=== PATIENT | female | born 2000 | race Caucasian/White ===

== ENCOUNTER 2019-02-02 10:06 | Emergency (ER) | payer OTHER ==
--- OUTSIDE RECORDS SUMMARY | 2019-02-02 10:13 | XMS REPORT | Continuity of Care Document ---
:2000 External Reference #:[id number] Author Name Clint Manzano M.D. Address [address] [place] [id number] Care Team Providers Name Role Phone Clint Manzano M.D. 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 Resolved Problems Ingrowing nail Onset: 12/24/2010 Resolved: 01/26/2018 Dysmenorrhea Onset: 10/23/2013 Resolved: 01/26/2018 Family History Date Family Member(s) Observation Comments Mother Scoliosis Onset: (age 40 Years) Mother Depression Mother Asthma Mother Seasonal Allergies Grandfather Arthritis Grandfather Hypertension Grandfather Hypercholesterolemia Onset: (age 80 Years) Grandmother Breast Cancer Social History Type Date Description Comments Sex Unknown ETOH Use Occasionally consumes alcohol Recreational Drug Use Denies Drug Use Tobacco Use Start: Unknown Patient has never smoked Smoking Status Reviewed: 01/29/19 Patient has never smoked Currently Active Patient is currently HIV and STD sexually active screening within the past 4-5 months. Additional Info Sexual preference is women Allergies, Adverse Reactions, Alerts Description No Known Drug Allergies Medications Active Medications SIG Qnty Indications Ordering Provider Date No Active Medications Unknown 01/29/2019 History Medications Estarylla Take 1 Tablet 28tabs N94.6 Clint Manzano 04/08/2014 - 0.25-35mg-mcg By Mouth Once M.D. 01/28/2019 Tablets Daily Medications Administered in Office Medication SIG Qnty Indications Ordering Provider Date Immunization Administration Nursing 01/26/2017 Single Or Combination Injection Immunization Administration Clint Manzano M.D. 12/26/2016 thru 18 yrs w/counseling Injection Immunization Administration Nursing 04/13/2016 Single Or Combination Injection Immunization Administration Jennifer Allen NP 02/03/2016 Single Or Combination Injection Immunization Administration Nursing 05/02/2015 Single Or Combination Injection Immunization Administration Nursing 05/31/2014 Single Or Combination Injection Immunizations CPT Code Status Date Vaccine Lot # [id number] Given 01/29/2019 Td Preservative Free For Use In Individuals 7 Yrs [id number] Or Older 38134 Given 01/26/2017 Meningococcal B Vaccine [id number] 75269 Given 12/26/2016 Meningococcal B Vaccine [id number] 51891 Given 04/13/2016 Flu Quadrivalent [id number] 57787 Given 02/03/2016 Meningococcal Conjugate Vaccine (Menveo) [id number] 38709 Given 05/02/2015 Flu Quadrivalent [id number] 92468 Given 05/31/2014 Flu Quadrivalent [id number] 91221 Given 04/22/2013 Influenza Virus Vaccine, Split Virus, 6-35 Months Age Intramuscul 77919 Given 04/25/2012 Influenza Virus Vaccine, Split Virus, 6-35 Months Age Intramuscul 71308 Given 07/12/2011 Gardasil 08628 Given 04/25/2011 Influenza Virus Vaccine, Split Virus, 6-35 Months Age Intramuscul 87318 Given 03/10/2011 Gardasil 43549 Given 12/24/2010 Gardasil 46800 Given 05/06/2010 Influenza Virus Vaccine, Split Virus, 6-35 Months Age Intramuscul 60578 Given 12/23/2009 Tdap 35129 Given 05/20/2009 Influenza Virus Vaccine, Pandemic Formulation, Live, Intranasal 89318 Given 05/20/2009 Influenza Virus Vaccine, Split Virus, 6-35 Months Age Intramuscul 15957 Given 04/29/2008 Influenza Virus Vaccine, Split Virus, 6-35 Months Age Intramuscul 81381 Given 11/26/2007 Menactra 43010 Given 05/29/2007 Varicella (Chicken Pox) Vaccine 21043 Given 05/29/2007 Influenza Virus Vaccine, Split Virus, 6-35 Months Age Intramuscul 95777 Given 05/29/2007 Hepatitis A Pediatric 79648 Given 11/22/2006 Hepatitis A Pediatric 25851 Given 04/25/2006 Influenza Virus Vaccine, Split Virus, 6-35 Months Age Intramuscul 01794 Given 08/10/2004 Influenza Virus Vaccine Intranasal 54476 Given 06/14/2004 Influenza Virus Vaccine Intranasal 19411 Given 10/31/2003 Polio Injectable 91076 Given 10/31/2003 MMR Vaccine, Live, For Subcutaneous Use 73156 Given 10/31/2003 DTaP Vaccine Younger Than 7 61645 Given 06/19/2000 Prevnar 13 76006 Given 03/29/2000 Hepatitis B Vaccine Pediatric/Adolescent 71212 Given 03/29/2000 Polio Injectable 56233 Given 03/29/2000 DTaP Vaccine Younger Than 7 51879 Given 02/23/2000 Prevnar 13 65932 Given 02/23/2000 Hib Vaccine 77430 Given 11/16/1999 MMR Vaccine, Live, For Subcutaneous Use 10870 Given 11/16/1999 Varicella (Chicken Pox) Vaccine 38800 Given 05/12/1999 DTaP Vaccine Younger Than 7 09241 Given 05/12/1999 Hib Vaccine 27648 Given 04/06/1999 Polio Injectable 54175 Given 03/03/1999 DTaP Vaccine Younger Than 7 64796 Given 03/03/1999 Hib Vaccine 03998 Given 02/03/1999 Hepatitis B Vaccine Pediatric/Adolescent 36273 Given 02/03/1999 Polio Injectable 78618 Given 01/06/1999 DTaP Vaccine Younger Than 7 09170 Given 01/06/1999 Hib Vaccine 29683 Given 1998 Hepatitis B Vaccine Pediatric/Adolescent Vital Signs Date Vital Result Comment 01/29/2019 3:19pm Body Temperature 98.7 F Heart Rate 101 /min Respiratory Rate 12 /min BP Systolic 132 mmHg BP Diastolic 79 mmHg Weight 127.25 lb Weight 57.721 kg Height 64.6 inches 5'4.60" BMI (Body Mass Index) 21.4 kg/m2 01/26/2018 3:57pm Body Temperature 98.0 F Heart Rate 77 /min Respiratory Rate 14 /min BP Systolic 105 mmHg BP Diastolic 65 mmHg Weight 128.75 lb Weight 58.401 kg Height 64.6 inches 5'4.60" BMI (Body Mass Index) 21.7 kg/m2 Body Mass Index Percentile 51 % Height Percentile 55 % Weight Percentile 54th 04/24/2017 11:50am Body Temperature 98.3 F Heart Rate 98 /min Respiratory Rate 14 /min BP Systolic 118 mmHg BP Diastolic 70 mmHg Blood Pressure Percentile 0 % Weight 130.75 lb Weight 59.308 kg Weight Percentile 61st 12/26/2016 10:21am Body Temperature 98.7 F Heart Rate 72 /min Respiratory Rate 18 /min BP Systolic 122 mmHg BP Diastolic 60 mmHg Blood Pressure Percentile 83 % Weight 129.38 lb Weight 58.684 kg Height 64.7 inches 5'4.70" BMI (Body Mass Index) 21.7 kg/m2 Body Mass Index Percentile 55 % Height Percentile 57 % Weight Percentile 60th 02/03/2016 3:50pm Body Temperature 98.2 F Heart Rate 80 /min Respiratory Rate 16 /min BP Systolic 112 mmHg BP Diastolic 72 mmHg Blood Pressure Percentile 49 % Weight 130.38 lb Weight 59.138 kg Height 64.5 inches 5'4.50" BMI (Body Mass Index) 22.0 kg/m2 Body Mass Index Percentile 62 % Height Percentile 55 % Weight Percentile 65th 06/15/2015 8:45am Body Temperature 98.7 F Heart Rate 82 /min Respiratory Rate 16 /min BP Systolic 100 mmHg BP Diastolic 62 mmHg Blood Pressure Percentile 0 % Weight 131.75 lb Weight 59.762 kg Weight Percentile 69th 12/05/2014 3:02pm Body Temperature 98.7 F Heart Rate 81 /min Respiratory Rate 16 /min BP Systolic 118 mmHg BP Diastolic 77 mmHg Blood Pressure Percentile 70 % Weight 134.25 lb Weight 60.896 kg Height 65 inches 5'5" BMI (Body Mass Index) 22.3 kg/m2 Body Mass Index Percentile 71 % Height Percentile 65 % Weight Percentile 74th 03/12/2014 12:00pm Heart Rate 90 /min Respiratory Rate 14 /min BP Systolic 113 mmHg BP Diastolic 68 mmHg Weight 130.69 lb Weight 59.285 kg Height 65 inches 10/23/2013 12:00pm Heart Rate 92 /min Respiratory Rate 16 /min BP Systolic 126 mmHg BP Diastolic 77 mmHg Weight 129.12 lb Weight 58.559 kg 04/22/2013 12:00pm Heart Rate 84 /min Respiratory Rate 18 /min BP Systolic 126 mmHg BP Diastolic 70 mmHg Weight 128.00 lb Weight 58.060 kg 01/01/2013 12:00pm Heart Rate 86 /min Respiratory Rate 12 /min BP Systolic 108 mmHg BP Diastolic 65 mmHg Weight 120.12 lb Weight 54.476 kg Height 64.5 inches 11/22/2012 12:00pm Heart Rate 73 /min Respiratory Rate 20 /min BP Systolic 120 mmHg BP Diastolic 70 mmHg Weight 121.81 lb Weight 55.248 kg 11/01/2012 12:00pm Heart Rate 80 /min Respiratory Rate 16 /min BP Systolic 107 mmHg BP Diastolic 70 mmHg Weight 122.62 lb Weight 55.610 kg 10/11/2012 12:00pm Heart Rate 85 /min Respiratory Rate 16 /min BP Systolic 109 mmHg BP Diastolic 68 mmHg Weight 122.19 lb Weight 55.429 kg 12/27/2011 12:00pm Heart Rate 88 /min Respiratory Rate 20 /min BP Systolic 110 mmHg BP Diastolic 68 mmHg Weight 116.25 lb Weight 52.730 kg Height 63.5 inches 08/29/2011 11:00am Heart Rate 88 /min Respiratory Rate 14 /min BP Systolic 112 mmHg BP Diastolic 62 mmHg Weight 115.00 lb Weight 52.163 kg 03/24/2011 12:00pm Heart Rate 104 /min Respiratory Rate 22 /min BP Systolic 110 mmHg BP Diastolic 68 mmHg Weight 101.00 lb Weight 45.813 kg 03/21/2011 12:00pm Heart Rate 81 /min Respiratory Rate 20 /min BP Systolic 103 mmHg BP Diastolic 70 mmHg Weight 101.00 lb Weight 45.813 kg 12/24/2010 12:00pm Heart Rate 87 /min Respiratory Rate 12 /min BP Systolic 109 mmHg BP Diastolic 62 mmHg Weight 93.62 lb Weight 42.456 kg Height 61 inches 12/23/2009 12:00pm Heart Rate 84 /min Respiratory Rate 16 /min BP Systolic 102 mmHg BP Diastolic 70 mmHg Weight 82.00 lb Weight 37.195 kg Height 58.25 inches 12/03/2008 12:00pm Heart Rate 80 /min Respiratory Rate 20 /min BP Systolic 100 mmHg BP Diastolic 68 mmHg Weight 74.50 lb Weight 33.793 kg Height 55.25 inches 10/07/2008 12:00pm Heart Rate 76 /min Respiratory Rate 24 /min BP Systolic 92 mmHg BP Diastolic 64 mmHg Weight 74.25 lb Weight 33.679 kg 09/24/2008 12:00pm Heart Rate 88 /min Respiratory Rate 18 /min BP Systolic 102 mmHg BP Diastolic 68 mmHg Weight 74.50 lb Weight 33.793 kg 03/27/2008 12:00pm Heart Rate 80 /min Respiratory Rate 16 /min BP Systolic 100 mmHg BP Diastolic 64 mmHg Weight 70.00 lb Weight 31.751 kg 03/07/2008 12:00pm Heart Rate 80 /min Respiratory Rate 16 /min BP Systolic 100 mmHg BP Diastolic 64 mmHg Weight 70.50 lb Weight 31.978 kg 02/18/2008 12:00pm Heart Rate 80 /min Respiratory Rate 24 /min BP Systolic 90 mmHg BP Diastolic 60 mmHg Weight 70.50 lb Weight 31.978 kg 01/22/2008 12:00pm Heart Rate 80 /min Respiratory Rate 16 /min BP Systolic 98 mmHg BP Diastolic 62 mmHg Weight 69.00 lb Weight 31.298 kg 11/26/2007 12:00pm Heart Rate 80 /min Respiratory Rate 16 /min BP Systolic 80 mmHg BP Diastolic 60 mmHg Weight 68.25 lb Weight 30.958 kg Height 53.25 inches 08/31/2007 11:00am Heart Rate 84 /min Respiratory Rate 16 /min BP Systolic 98 mmHg BP Diastolic 68 mmHg Weight 64.75 lb Weight 29.370 kg 08/24/2007 11:00am Heart Rate 80 /min Respiratory Rate 12 /min BP Systolic 94 mmHg BP Diastolic 68 mmHg Weight 64.00 lb Weight 29.030 kg 08/13/2007 11:00am Heart Rate 100 /min Respiratory Rate 20 /min BP Systolic 102 mmHg BP Diastolic 60 mmHg Weight 63.50 lb Weight 28.803 kg 08/07/2007 11:00am Heart Rate 72 /min Respiratory Rate 12 /min BP Systolic 92 mmHg BP Diastolic 70 mmHg Weight 64.25 lb Weight 29.143 kg 07/14/2007 11:00am Heart Rate 104 /min Respiratory Rate 28 /min BP Systolic 92 mmHg BP Diastolic 60 mmHg Weight 63.00 lb Weight 28.576 kg 03/08/2007 12:00pm Heart Rate 96 /min Respiratory Rate 24 /min BP Systolic 90 mmHg BP Diastolic 52 mmHg Weight 63.50 lb Weight 28.803 kg 01/06/2007 12:00pm Heart Rate 92 /min Respiratory Rate 16 /min BP Systolic 102 mmHg BP Diastolic 64 mmHg Weight 62.00 lb Weight 28.123 kg 11/22/2006 12:00pm Heart Rate 80 /min Respiratory Rate 16 /min BP Systolic 106 mmHg BP Diastolic 60 mmHg Weight 61.50 lb Weight 27.896 kg Height 51 inches 11/06/2006 12:00pm Heart Rate 112 /min Respiratory Rate 20 /min BP Systolic 108 mmHg BP Diastolic 66 mmHg Weight 60.00 lb Weight 27.216 kg 06/20/2006 11:00am Heart Rate 92 /min Respiratory Rate 20 /min BP Systolic 90 mmHg BP Diastolic 60 mmHg Weight 58.00 lb Weight 26.308 kg 04/28/2006 12:00pm Heart Rate 132 /min Respiratory Rate 24 /min BP Systolic 100 mmHg BP Diastolic 64 mmHg Weight 56.50 lb Weight 25.628 kg 03/21/2006 12:00pm Heart Rate 88 /min Respiratory Rate 16 /min BP Systolic 90 mmHg BP Diastolic 58 mmHg Weight 56.25 lb Weight 25.515 kg 03/09/2006 12:00pm Heart Rate 72 /min Respiratory Rate 16 /min BP Systolic 96 mmHg BP Diastolic 64 mmHg Weight 57.00 lb Weight 25.855 kg 01/25/2006 12:00pm Heart Rate 76 /min Respiratory Rate 16 /min BP Systolic 92 mmHg BP Diastolic 60 mmHg Weight 55.00 lb Weight 24.948 kg Height 49 inches 12/26/2005 12:00pm Heart Rate 96 /min Respiratory Rate 28 /min BP Systolic 80 mmHg BP Diastolic 52 mmHg Weight 52.50 lb Weight 23.814 kg 12/09/2005 12:00pm Heart Rate 88 /min Respiratory Rate 24 /min BP Systolic 98 mmHg BP Diastolic 62 mmHg Weight 52.50 lb Weight 23.814 kg 12/08/2005 12:00pm Heart Rate 92 /min Respiratory Rate 20 /min BP Systolic 86 mmHg BP Diastolic 60 mmHg Weight 52.50 lb Weight 23.814 kg 11/21/2005 12:00pm Heart Rate 108 /min Respiratory Rate 20 /min BP Systolic 86 mmHg BP Diastolic 60 mmHg Weight 54.00 lb Weight 24.494 kg Height 48.5 inches 10/24/2005 12:00pm Heart Rate 111 /min Respiratory Rate 18 /min BP Systolic 84 mmHg BP Diastolic 52 mmHg Weight 53.50 lb Weight 24.267 kg Results Test Date Facility Test Result H/L Range Note .CBC W/Auto 01/29/2019 [facility] White Blood 7.[address] [place] [address] Auto CNT [phone] Absolute Lymphocytes 2.3 Absolute Monocytes 0.5 Absolute Neutrophils Auto CNT 4.9 Lymph% 29.8 Mccreary% Auto Count BLD 6.3 Neutrophil % 63.9 RBC Red Blood Count 4.42 Hemoglobin Blood 13.0 Hematocrit 41.1 MCV (Corpuscular Volume) 92.9 MCH (Corpuscular Hemoglobin) 29.4 MCHC (Corpuscular Hemog Conc) 31.6 RDW 12.0 Platelet Count Blood Auto CNT 229 MPV 8.7 .CBC W/Auto 01/26/2018 [facility] White Blood 7.7 Differential [address] [place] [place] [address] CNT [phone] Absolute Lymphocytes 3.3 Absolute Monocytes 0.7 Absolute Neutrophils Auto CNT 3.8 Lymph% 42.3 Mccreary% Auto Count BLD 8.7 Neutrophil % 49.0 RBC Red Blood Count 4.21 Hemoglobin Blood 11.4 Hematocrit 37.4 MCV (Corpuscular Volume) 88.9 MCH (Corpuscular Hemoglobin) 27.1 MCHC (Corpuscular Hemog Conc) 30.5 RDW 13.3 Platelet Count Blood Auto CNT 231 MPV 8.9 .CBC W/Auto 12/26/2016 [facility] White Blood 4.2 Differential [address] [place] [place] [address] CNT [phone] Absolute Lymphocytes 1.8 Absolute Monocytes 0.3 Absolute Neutrophils Auto CNT 2.1 Lymph% 42.1 Mccreary% Auto Count BLD 7.6 Neutrophil % 50.3 RBC Red Blood Count 4.55 Hemoglobin Blood 11.4 Hematocrit 36.3 MCV (Corpuscular Volume) 79.8 MCH (Corpuscular Hemoglobin) 25.1 MCHC (Corpuscular Hemog Conc) 31.4 RDW 13.7 Platelet Count Blood Auto CNT 231 MPV 8.7 .Cholesterol 12/26/2016 [facility] Cholesterol Total 185 Screening [address] Mass/Vol [place], [place] [id number] [phone] HDL Cholesterol Mass/Vol 51 Triglycerides Ser/Plas Mass/VL 113 LDL Cholesterol Mass/Vol 111 Non-HDL Cholesterol QN Ser/PLS 134 LDL/HDL Ratio 3.6 .CBC W/Auto 02/03/2016 [facility] White Blood 7.5 Differential [address] [place] [address] CNT [phone] Absolute Lymphocytes 2.9 Absolute Monocytes 0.6 Absolute Neutrophils Auto CNT 4.1 Lymph% 38.4 Mccreary% Auto Count BLD 7.4 Neutrophil % 54.2 RBC Red Blood Count 3.96 Hemoglobin Blood 11.7 Hematocrit 34.3 MCV (Corpuscular Volume) 86.7 MCH (Corpuscular Hemoglobin) 29.5 MCHC (Corpuscular Hemog Conc) 34.1 RDW 12.6 Platelet Count Blood Auto CNT 225 MPV 8.5 Laboratory test 06/15/2015 [facility] .Culture Throat neg finding [address] [place] [address] [phone] .Quick Strep Screen negative .CBC W/Auto 12/05/2014 [facility] White Blood 5.[address] [place] [address] CNT [phone] Absolute Lymphocytes 2.3 Absolute Monocytes 0.5 Absolute Neutrophils Auto CNT 2.5 Lymph% 43.8 Mccreary% Auto Count BLD 9.4 Neutrophil % 46.8 RBC Red Blood Count 3.98 Hemoglobin Blood 11.1 Hematocrit 33.1 MCV (Corpuscular Volume) 83.1 MCH (Corpuscular Hemoglobin) 27.9 MCHC (Corpuscular Hemog Conc) 33.5 RDW 14.3 Platelet Count Blood Auto CNT 262 MPV 9.1 Rapid Influenza A 08/09/2014 [facility] Rapid Influenza A (SEE NOTE) 1, [address] [place] [address] Laboratory test 08/09/2014 [facility] RSV Antigen Screen (SEE NOTE) [address] [place] [address] Rapid Strep A 08/09/2014 [facility] Rapid Strep A (SEE NOTE) [address] [place] [address] Laboratory test 08/09/2014 [facility] Throat Beta Strep (SEE NOTE) [address] [place] [address] Laboratory test 03/12/2014 N2N/[facility]D Import Granulocytes # 4.8 1.5-8. finding 0 Granulocytes (%) 56.3 38.0-83.0 Hematocrit 36.3 36.0-46.0 Hemoglobin 11.9 Low 12.0-16.0 Lymphocytes # 3 x10.3/ul 1.2-5.2 Lymphocytes % 35.4 20.0-45.0 Mean Corpuscular Hemoglobin 27.1 26.0-34.0 Mean Corpuscular Hemoglobin Concent 32.8 31.0-37.0 Mean Platelet Volume 8.9 7.4-10.4 Monocytes # 0.7 0.0-0.8 Monocytes % 8.3 1.0-9.0 Platelet Count 293 x10.3/ul 150-350 Poc Mean Corpuscular Volume 82.7 78.0-102.0 Red Blood Count 4.39 3.90-5.10 Red Cell Distribution Width 14.9 10.5-15.0 White Blood Count 8.5 4.5-13.5 Laboratory test 10/23/2013 [facility] Import Urine HCG, negative finding Qualitative Laboratory test 01/01/2013 [facility] Import Granulocytes # 2.7 1.5-8.0 finding Granulocytes (%) 54.1 38.0-83.0 Hematocrit 37.4 36.0-46.0 Hemoglobin 12.5 12.0-16.0 Lymphocytes # 1.9 1.2-5.2 Lymphocytes % 37.2 20.0-45.0 Mean Corpuscular Hemoglobin 27.1 26.0-34.0 Mean Corpuscular Hemoglobin Concent 33.4 31.0-37.0 Mean Platelet Volume 8.9 7.4-10.4 Monocytes # 0.4 0.0-0.8 Monocytes % 8.7 1.0-9.0 Platelet Count 237. 150-350 Poc Mean Corpuscular Volume 81.2 78.0-102.0 Red Blood Count 4.61 3.90-5.10 Red Cell Distribution Width 14.9 10.5-15.0 White Blood Count 5.0 4.5-13.5 Laboratory test finding 11/23/2012 [facility] Import Urine Ashley Count None Laboratory test finding 11/22/2012 [facility] Import Urine Bilirubin Negative Urine Blood negative Urine Clarity Clear Urine Collection Type Clean catch Urine Color Yellow Urine Glucose Negative Urine Ketones Negative Urine Leukocyte Esterase Negative Urine Nitrite Negative Urine Protein Trace Urine Specific Amboy 1.030 Urine Urobilinogen Normal Urine pH 5 Laboratory test 11/13/2012 N[facility] Import Ur Leukocyte 1+ High Negative finding Esterase Ur Specific [place] 1.018 1.010-1.030 Urine Appearance Clear Urine Bacteria 2+ None Seen Urine Bilirubin Negative Negative Urine Blood 3+ High Negative Urine Color Yellow Urine Glucose (Ua) Negative Negative Urine Ketones Negative Negative Urine Mucus Present Absent Urine Nitrate Positive High Negative Urine Protein 3+ High Negative Urine RBC 3+ (>10 /hpf) None Seen Urine Urobilinogen Negative Negative Urine WBC 1+ (<10 /hpf) None Seen Urine pH 6.0 5-9 Laboratory test 10/11/2012 [facility] Import Absolute Basos 0 10^3/ul 0- 0.2 finding (auto) Absolute Eos (auto) 0.2 0-0.6 Absolute Gran (auto) 3.7 1.5-7.7 Absolute Lymphs (auto) 2.6 1.0-4.8 Absolute Monos (auto) 0.5 0-0.8 Absolute Nucleated RBC 0 10^3/ul Band Neutrophils % 1 % 0-8 Eosinophils % 3 % 0-6 Factor VIII Activity 121 % 55 - 200 Hct 34 % Low 35-45 Hgb 11.3 Low 11.5-15.5 Lymphocytes % 32 % 25-47 MCH 28 pg 27-31 MCHC 34 g/dL 31-36 MCV 83 fL 80-97 MPV 9 um3 7.4-10.4 Monocytes % 2 % 0-13 Neutrophils % 59 % 38-83 Plt Count 273 10^3/ul 150-450 RBC 4.04 4.0-5.2 RBC Morphology Normal Normal RDW 13 % 10.5-15 Reactive Lymphs % 3 % 0-6 WBC 7.0 4.8-10.8 vWF Panel Interp See Comment von Willebrand Activity 134 % 55 - 200 von Willebrand Antigen 107 % Laboratory test finding 12/27/2011 [facility] Import Granulocytes # 3.0 1.5 -8.0 Granulocytes (%) 45.4 38.0-83.0 Hematocrit 36.4 36.0-46.0 Hemoglobin 12.1 12.0-16.0 Lymphocytes # 3.1 1.2-5.2 Lymphocytes % 45.9 High 20.0-45.0 Mean Corpuscular Hemoglobin 29.7 26.0-34.0 Mean Corpuscular Hemoglobin Concent 33.2 31.0-37.0 Mean Platelet Volume 9.0 7.4-10.4 Monocytes # 0.6 0.0-0.8 Monocytes % 8.7 1.0-9.0 Platelet Count 246 x10.3/ul 150-350 Poc Mean Corpuscular Volume 89.3 78.0-102.0 Red Blood Count 4.08 3.90-5.10 Red Cell Distribution Width 12.1 10.5-15.0 White Blood Count 6.7 4.5-13.5 Laboratory test 03/08/2008 N2N/CCD Import Throat Culture Neg finding Laboratory test 09/02/2007 N2N/CCD Import Genital Culture (Lab) positive finding Laboratory test 08/31/2007 N2N/CCD Import Urine Bilirubin Negative finding Urine Blood negative Urine Clarity Clear Urine Collection Type Clean Urine Color Yellow Urine Glucose N Urine Ketones Negative Urine Leukocyte Esterase Negative Urine Nitrite Negative Urine Protein Negative Urine Specific Amboy 1.015 Urine Urobilinogen Normal 0.2-1.0 Urine pH 6.0 Laboratory test finding 08/25/2007 N2N/CCD Import Urine Ashley Count None Laboratory test finding 08/24/2007 N2N/CCD Import Urine Bacteria 2+ Urine Bilirubin Negative Urine Blood negative Urine Clarity Clear Urine Collection Type Clean Urine Color Yellow Urine Crystals N Urine Epithelial Cells N Urine Glucose N Urine Granular Casts N Urine Hyaline Casts N Urine Ketones Negative Urine Leukocyte Esterase Negative Urine Mucus N Urine Nitrite Negative Urine Protein Negative Urine RBC N Urine Specific Amboy 1.020 Urine Urobilinogen Normal 0.2-1.0 Urine WBC N Urine pH 6.0 Laboratory test 08/13/2007 N2N/CCD Import Influenza Virus positive finding Culture (Rapid) 1 Verbal to [id number] by [id number] at 1604 on 08/09/14.~Results read back accurately. 2 RUN DATE: 08/09/14 [facility] LAB LIVE PAGE 1 RUN TIME: [address] [place] [address] Specimen Inquiry Name: THALIA SCHMITT : [address]: Halle Diego MD Acct: [id number] Unit: [id number] AGE: 13 Location: [facility] Re08/09/14 SEX: F Status: REG ER SPEC: [id number] GRACIA: 08/09/14-[address]: Halle Diego MD REQ: [id number] RECD: 08/09/14-153 STATUS: ANTONELLA PRADO DR: Clint Manzano MD _ SOURCE: DANNIE SPDC: ORDERED: Rapid Flu A B COMMENTS: Verbal to [id number] by [id number] at 1604 on 08/09/14. Results read back accurately. Procedure Result Verified Site Rapid Influenza A B Antigen Final 08/09/14- 1604 ML Organism 1 POSITIVE INFLUENZA A Organism 2 Negative Influenza B Antigen testing by enzyme immunoassay. Cell culture testing can be performed to confirm negative test results and to assist in detecting other viruses that can produce similar clinical symptoms. Please notify Microbiology Lab if further testing is desired. END OF REPORT * ML=Testing performed at Main Lab DEPARTMENT OF PATHOLOGY, [facility] [employer] [place], [place] [address] Ryland Ojeda M.D. Director IA # [id number] 3 RUN DATE: 08/09/14 [facility] LAB LIVE PAGE 1 RUN TIME: 1607 [facility] [address] [place], [place] [address] Specimen Inquiry Name: THALIA SCHMITT : [address]: Halle Diego MD Acct: [id number] Unit: [id number] AGE: 13 Location: [facility] Re08/09/14 SEX: F Status: REG ER SPEC: [id number] GRACIA: 08/09/14-[address] [facility] [address]: Halle Diego MD REQ: [id number] RECD: 08/09/14 STATUS: ANTONELLA [facility] DR: Clint Manzano MD _ SOURCE: DANNIE [facility]: ORDERED: RSV Procedure Result Verified Site RSV Antigen Screen Final 08/09/14- 1607 ML Organism 1 Negative RSV Antigen testing by enzyme immunoassay. Cell culture testing can be performed to confirm negative test results and to assist in detecting other viruses that can produce similar clinical symptoms. Please notify Microbiology Lab if further testing is desired. END OF REPORT * ML=Testing performed at Main Lab DEPARTMENT OF PATHOLOGY, [facility] [employer] [place], [place] [address] Ryland Ojeda M.D. Director CLIA # [id number] 4 RUN DATE: 08/09/14 [facility] LAB LIVE PAGE 1 RUN TIME: 4173 [facility] [address] [place], [place] [address] Specimen Inquiry Name: RADHATHALIA : [address]: Halle Diego MD Acct: [id number] Unit: [id number] AGE: 13 Location: [facility] Re08/09/14 SEX: F Status: REG ER SPEC: [id number] GRACIA: 08/09/14 [facility] DR: Halle Diego MD REQ: [id number] RECD: 08/09/14 STATUS: ANTONELLA CHATMAN DR: Clint Manzano MD _ SOURCE: THROAT SPDESC: ORDERED: Rapid Strep A Procedure Result Verified Site Rapid Strep A Final 08/09/14- 1348 ML Organism 1 Negative Strep Group A Antigen testing by enzyme immunoassay. The machine bookkeeper and regulatory agencies both recommend that a throat culture for beta strep be performed if a Rapid Group A Strep assay yields a negative result. Therefore a culture will be automatically performed on all negative samples. END OF REPORT * ML=Testing performed at Main Lab DEPARTMENT OF PATHOLOGY, [facility] [employer] [place], [place] [address] Ryland Ojeda M.D. Director [facility] # [id number] 5 RUN DATE: 08/11/14 [facility] LAB LIVE PAGE 1 RUN TIME: [address] [facility] [address] [place], [place] [address] Specimen Inquiry Name: THALIA SCHMITT : [address]: Halle Diego MD Acct: [id number] Unit: [id number] AGE: 13 Location: [facility] Re08/09/14 SEX: F Status: DEP ER SPEC: [id number] GRACIA: 08/09/[address]: Halle Diego MD REQ: [id number] RECD: 08/09/14 STATUS: ANTONELLA CHATMAN DR: Clint Manzano MD _ SOURCE: THROAT SPDESC: ORDERED: Rapid Strep A, Throat Beta Str QUERIES: Provider Requisition # Procedure Result Verified Site Rapid Strep A Final 08/09/14- 1348 ML Organism 1 Negative Strep Group A Antigen testing by enzyme immunoassay. The machine bookkeeper and regulatory agencies both recommend that a throat culture for beta strep be performed if a Rapid Group A Strep assay yields a negative result. Therefore a culture will be automatically performed on all negative samples. Throat Beta Strep Culture Final 08/11/14- 0823 ML Negative For Group A Beta Streptococcus END OF REPORT * ML=Testing performed at Main Lab DEPARTMENT OF PATHOLOGY, [address] [place] [id number] Ryland Ojeda M.D. Director [facility] # [id number] Procedures Date Code Description Status 01/26/2018 90938 Vision Screening Completed 01/26/2018 91398 Admin Patient Focused Health Risk Assessment Instrument Completed 01/26/2018 59064 Brief Emotional/Behav Assessment W/ Scoring Doc Per Completed Standard Inst 01/26/2018 17437 Hearing Screen, Pure Tone, Air Completed 01/26/2018 23249 Collection Of Capillary Blood Specimen Completed 12/26/2016 32759 Vision Screening Completed 12/26/2016 01959 Admin Patient Focused Health Risk Assessment Instrument Completed 12/26/2016 51228 Brief Emotional/Behav Assessment W/ Scoring Doc Per Completed Standard Inst 12/26/2016 65829 Hearing Screen, Pure Tone, Air Completed 12/26/2016 32189 Collection Of Capillary Blood Specimen Completed 02/03/2016 61491 Vision Screening Completed 02/03/2016 86797 Hearing Screen, Pure Tone, Air Completed 02/03/2016 92437 Collection Of Capillary Blood Specimen Completed 12/05/2014 20569 Vision Screening Completed 12/05/2014 23322 Hearing Screen, Pure Tone, Air Completed 12/05/2014 17263 Collection Of Capillary Blood Specimen Completed Encounters Type Date Location Provider Dx Diagnosis Office Visit 01/29/2019 [facility] Clint Manzano, Z00.00 Encntr for general 3:00p M.DMamadou adult medical exam w/o abnormal findings 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 mononucleosis, unspecified without complication G43.909 Migraine, unsp, not intractable, without status migrainosus Office Visit 12/26/2016 10:00a [facility] Clint Manzano Z00.00 Encntr for M.DMamadou general adult medical exam w/o abnormal findings G43.909 Migraine, unsp, not intractable, without status migrainosus N94.6 Dysmenorrhea, unspecified Z71.89 Other specified counseling Office Visit 02/03/2016 3:45p [place] [facility] Jennifer Allen NP Z00.129 Encntr for routine child health exam w/o abnormal findings N94.6 Dysmenorrhea, unspecified L70.0 Acne vulgaris Office Visit 06/15/2015 8:30a [facility] Maci Terrell J02.9 Acute pharyngitis, RPA-C unspecified Office Visit 12/05/2014 3:00p [facility] Clint V20.2 Routine Infant Or Luma Manzano Child Health Check v65.42 Counseling On Substance Use & Abuse 625.3 Dysmenorrhea 706.1 Acne Other
[2019-02-02 10:20] VITALS: BP 129/73
--- NOTE | 2019-02-02 10:34 | UC ---
Ear Complaint HPI - HPI Summary HPI Summary: 18-year-old female presents with complaints of onset of "muffled" hearing in the left ear for the past 2 days. States around 2 AM this morning she was awoken with a sharp ear pain in the left ear which improved after applying a warm compress and taking a dose of ibuprofen. States the pain was still present this morning although less intense. Denies fever, chills, ear drainage , nasal congestion, runny nose, sore throat, or cough. - History of Current Complaint Chief Complaint: UCEar Stated Complaint: EAR PAIN Time Seen by Provider: 02/02/19 10:28 Hx Obtained From: Patient Hx Last Menstrual Period: 4 weeks ago Pain Intensity: 2 - Allergies/Home Medications Allergies/Adverse Reactions: Allergies Allergy/AdvReac Type Severity Reaction Status Date / Time cold medicine AdvReac tingling Uncoded 02/02/19 10:21 hands Home Medications: Home Medications Ibuprofen TAB* [Advil TAB*] 400 mg PO Q6H PRN 02/02/19 [History Confirmed ] PMH/Surg Hx/FS Hx/Imm Hx Previously Healthy: Yes Neurological History: Migraine - Surgical History Surgical History: None - Family History Known Family History: Positive: Non-Contributory - Social History Occupation: Student Lives: With Family Alcohol Use: Rare Substance Use Type: None Smoking Status (MU): Never Smoked Tobacco - Immunization History Most Recent Influenza Vaccination: 04/2014 Review of Systems All Other Systems Reviewed And Are Negative: Yes Constitutional: Negative: Fever, Chills Eyes: Negative: Drainage, Eye Redness ENT: Positive: Ear Ache. Negative: Sore Throat, Nasal Discharge, Sinus Congestion, Sinus Pain/Tenderness Respiratory: Negative: Cough Cardiovascular: Positive: Negative Gastrointestinal: Positive: Negative Genitourinary: Positive: Negative Musculoskeletal: Positive: Negative Neurological: Positive: Negative Is Patient Immunocompromised?: No Physical Exam - Summary Physical Exam Summary: GENERAL APPEARANCE: Well developed, well nourished, alert and cooperative, and appears to be in no acute distress. EYES: Conjunctiva clear. No drainage. PERRL, EOM intact. Vision is grossly intact. EARS: Bilateral cerumen impaction. TMs not visualized. NOSE: No nasal discharge. THROAT: Pharynx normal. No tonsilar inflammation, swelling, exudate, or lesions. Uvula midline. NECK: Neck supple, non-tender without lymphadenopathy. CARDIAC: Normal S1 and S2. No S3, S4 or murmurs. Rhythm is regular. There is no peripheral edema, cyanosis or pallor. Extremities are warm and well perfused. Capillary refill is less than 2 seconds. Peripheral pulses intact. LUNGS: Clear to auscultation without rales, rhonchi, wheezing or diminished breath sounds. ABDOMEN: Positive bowel sounds. Soft, nondistended, nontender. No guarding or rebound. No masses or hepatosplenomegally. MUSKULOSKELETAL: ROM intact to all extremities. No joint erythema or tenderness. Normal muscular development. Normal gait. SKIN: Skin normal color, texture and turgor with no lesions or eruptions. Triage Information Reviewed: Yes Vital Signs: Initial Vital Signs Temp 99.1 F 02/02/19 10:17 Pulse 79 02/02/19 10:17 Resp 16 02/02/19 10:17 BP 129/73 02/02/19 10:17 Pulse Ox 98 02/02/19 10:17 Vital Signs Reviewed: Yes Re-Evaluation - Re-Evaluation First Eval Re-Evaluation Time: 10:50 Change: Improved Comment: Post-irrigation the patient reports improved hearing. Examination of the external auditory canals shows clear canals without erythema or edema. Right TM opaque with good cone of light. Left TM opaque with air bubbles noted. No erythema. Ear Complaint Course/Dx - Course Course Of Treatment: 18-year-old female presents with complaints of onset of "muffled" hearing in the left ear for the past 2 days. States around 2 AM this morning she was awoken with a sharp ear pain in the left ear which improved after applying a warm compress and taking a dose of ibuprofen. States the pain was still present this morning although less intense. Denies fever, chills, ear drainage , nasal congestion, runny nose, sore throat, or cough. Afebrile. Vital signs stable. Patient had bilateral cerumen impaction which did not allow for visualization of the TMs. The external auditory canals were irrigated by the RN. Post-irrigation the patient reported improved hearing. Examination of the external auditory canals showed clear canals without erythema or edema. Right TM opaque with good cone of light. Left TM opaque with air bubbles noted. No erythema. Will treat for an acute left serous otitis with fluticasone nasal spray 2 sprays each nostril once daily as well as OTC analgesics as needed. She is to follow up with her PCP in 3-5 days if no improvement. Anticipatory guidance and warning symptoms reviewed with the patient. Verbalizes understanding and agrees with POC. - Differential Dx/Diagnosis Differential Diagnosis/HQI/PQRI: Otitis Externa, Otitis Media, URI, Other - Serous otitis Provider Diagnosis: Bilateral impacted cerumen, Acute serous otitis media, left ear Discharge - Sign-Out/Discharge Documenting (check all that apply): Patient Departure All imaging exams completed and their final reports reviewed: No Studies - Discharge Plan Condition: Stable Disposition: HOME Prescriptions: Fluticasone NASAL SPRAY 50MCG* [Flonase NASAL SPRAY 50MCG*] 2 spray BOTH NARES DAILY #1 btl Patient Education Materials: Cerumen Impaction (ED), Serous Otitis Media (ED) Referrals: Clint Manzano MD [Primary Care Provider] - 3 Days Additional Instructions: Your decreased hearing was probably related to the impacted ear wax that we were able to successfully removed. You also had some fluid behind the left eardrum without any signs of infection which is likely caused by eustachian tube dysfunction. Start fluticasone nasal spray 2 sprays each nostril once daily. Continue using acetaminophen (Tylenol) or ibuprofen (Advil, Motrin) according directions as needed for pain. Follow-up with your primary care provider in 3-5 days if symptoms are not improving. Seek immediate medical attention if you develop a fever greater than 100.5 F, you have severe pain that is not managed with acetaminophen or ibuprofen, have loss of hearing, drainage or bleeding from the ear, or any worsening of symptoms. - Billing Disposition and Condition Condition: STABLE Disposition: Home - Attestation Statements Provider Attestation: I was available for consult. This patient was seen by the RYAN. The patient was not presented to, seen by, or examined by me. -Luis
== END 2019-02-02 11:05 | disposition home or self-care (01) ==
LOC: UCEAST 10:06
DX: H61.23 Impacted cerumen, bilateral (principal); H65.02 Acute serous otitis media, left ear
CPT/HCPCS: 99203; G0463